=== PATIENT | female | born 1965 | race Caucasian/White ===

== ENCOUNTER 2021-05-06 12:33 | Emergency (ER) | payer MEDICAID, SELFPAY ==
[2021-05-06 12:33] VITALS: BP 69/48; PULSE 79; RESP 15; O2SAT 92; BMI 19.2
--- NOTE | 2021-05-06 12:55 | CT_ITS ---
WS: [id number] CT HEAD NONCONTRAST HISTORY: h/a, ams TECHNIQUE: Contiguous axial imaging performed through the brain in 2.5 mm imaging. Bone and soft tiss ue windows. Sagittal and coronal reformats reviewed. All CT scans at [facility] use at least one of these dose optimization techniques: automated exposure control; mA and/or kV adjustment per pa tient size (includes targeted exams where dose is matched to clinical indication); or iterative recon struction. DLP: 857.88 mGy.cm COMPARISON: 04/03/2015 No acute intracranial hemorrhage, midline shift or mass effect. No significant atrophy. Remote lacunar infarct in the RIGHT caudate head. No loss of clifton-white matte r differentiation. Ventricles: Normal size with no hydrocephalus. Paranasal sinuses: As visualized are clear. Mastoid air cells: Well pneumatized. Calvarium and scalp: Skull is intact with no soft tissue edema or swelling. CT/CT head wo con* [id number] IMPRESSION: 1. No acute intracranial hemorrhage or edema. 2. Remote RIGHT caudate head lacunar infarct.
--- NOTE | 2021-05-06 12:57 | ED_ITS ---
HPI - Headache General: Chief Complaint: Headache Stated Complaint: migraine Time Seen by Provider: 05/06/21 12:34 History of Present Illness: Patient presents via ambulance with complaint about headache x14 days. Did see her primary care provider and was given a Toradol shot and she said provider told her she should take a sip of alcohol so she did not go into DTs and do that on a daily basis. Patient is said she has relief from the Toradol but she feels like there is [id number] and pain going from back her head up into the top part. Said she is having problems finding words at times. He keeps repeating same statements over and over. Patient also says she has a history of migraines and alcoholism. Associated symptoms: Deny chest pain, fever(s), nausea, rash or vomiting Review of Systems Narrative: Is currently drinking alcohol Const: Denies: fever(s), chills or body aches Eyes: Denies: eye discomfort ENMT: Denies: throat pain Card: Denies: chest pain Resp: Denies: dyspnea GI: Denies: abdominal pain, nausea or vomiting Skin/Breast: Denies: rash Neuro: Reports: headache(s) and sensory changes Psych: Denies: depression or suicidal ideation Physical Exam Const: COMMON NORMALS: no acute distress, patient oriented x3 and alert HENMT: COMMON NORMALS: normocephalic and external ears normal HEAD & SCALP: normocephalic EXTERNAL EAR: Yes external ears normal Eye: COMMON NORMALS: EOMs intact bilaterally Neck/C-Spine: COMMON NORMALS: no JVD OTHER: Discomfort to the paracervical muscles. Resp: COMMON NORMALS: normal respiratory effort and No use of accessory muscles Cardio: COMMON NORMALS: no JVD GI: INSPECTION: Yes normal to inspection Extremity: COMMON NORMALS: normal to inspection and full ROM Neuro: COMMON NORMALS: patient oriented x3 SENSORIUM/ORIENTATION: Yes alert PUPIL EXAM: Normal pupillary reactivity/response: bilateral OTHER: Patient does appear slightly glassy eyed and possibly under the influence of alcohol. Is conversing normally. Psych: COMMON NORMALS: mental status grossly normal APPEARANCE: Yes grossly normal Skin: COMMON NORMALS: no rashes or lesions noted GENERAL SKIN EXAM: no rashes or lesions noted Course Vital Signs: Vital signs: Vital Signs Pulse Rate 73 05/06/21 13:44 Respiratory Rate 16 05/06/21 13:44 Blood Pressure 88/56 05/06/21 13:44 Pulse Oximetry 98 05/06/21 13:44 MDM - Headache Medical Decision Making Headache and EtOH intoxication. Patient is in no acute distress answers all questions appropriately. CT of the head just showed remote lunar infarct which is consistent with her past history. No signs of recent stroke or brain bleed. Headache is gone with medications gave her today. Labs are stable. Patient decreased alcohol intake follow-up with primary care provider and continue seek rehab. Lab Data : 05/06/21 13:15 05/06/21 13:[address] 05/06/21 12:55 IMPRESSION: 1. No acute intracranial hemorrhage or edema. 2. Remote RIGHT caudate head lacunar infarct. Laboratory Results WBC 7.1 10^3/uL (4.0-10.0) 05/06/21 13:15 RBC 4.58 10^6/uL (4.1-5.3) 05/06/21 13:15 Hgb 14.4 g/dL (11.5-15.3) 05/06/21 13:15 Hct 44.7 % (37.0-47.0) 05/06/21 13:15 MCV 97.6 fl (81-99) 05/06/21 13:15 MCH 31.4 pg (28.0-34.0) 05/06/21 13:15 MCHC 32.2 g/dL (30.0-36.0) 05/06/21 13:15 RDW 11.9 % (12.1-15.1) L 05/06/21 13:15 Plt Count 349 10^3/cmm (130-400) 05/06/21 13:15 MPV 9.6 fL (7.4-10.4) 05/06/21 13:15 Neut % (Auto) 53.8 % 05/06/21 13:15 Lymph % (Auto) 36.1 % 05/06/21 13:15 [place] % (Auto) 5.4 % 05/06/21 13:15 Eos % (Auto) 3.5 % 05/06/21 13:15 Baso % (Auto) 0.8 % 05/06/21 13:15 Neut # (Auto) 3.81 10^3/uL (1.8-7.7) 05/06/21 13:15 Lymph # (Auto) 2.6 10^3/uL (0.8-4.8) 05/06/21 13:15 [place] # (Auto) 0.4 10^3/uL (0.2-0.9) 05/06/21 13:15 Eos # (Auto) 0.3 10^3/uL (0.0-0.8) 05/06/21 13:15 Baso # (Auto) 0.1 10^3/uL (0.0-0.1) 05/06/21 13:15 Nucleated RBC % (auto) 0 % 05/06/21 13:15 Nucleated RBCs # 0.0 /100WBC 05/06/21 13:15 Sodium 142 mmol/L (136-145) 05/06/21 13:15 Potassium 4.4 mmol/L (3.5-5.1) 05/06/21 13:15 Chloride 103 mmol/L (98-107) 05/06/21 13:15 Carbon Dioxide 25 mmol/L (22-29) 05/06/21 13:15 Anion Gap 18.4 (5-19) 05/06/21 13:15 BUN 16 mg/dL (6-20) 05/06/21 13:15 Creatinine 1.1 mg/dL (0.5-0.9) H 05/06/21 13:15 GFR Calculation 51.8 mL/min (90-130) L 05/06/21 13:15 Glucose 92 mg/dL (65-115) 05/06/21 13:15 Calculated Osmolality 295 mOsm/kg (285-295) 05/06/21 13:15 Calcium 10.1 mg/dL (8.5-10.5) 05/06/21 13:15 C-Reactive Protein 3.0 mg/L (0.0-4.9) 05/06/21 13:15 Ethyl Alcohol 189 mg/dL (0-10) H 05/06/21 13:15 Discharge Plan Discharge Patient Disposition: Home Clinical Impression: Headache, Elevated ETOH level Condition: Stable Prescriptions: New Celebrex 100 mg capsule 100 mg PO BID Qty: 20 0RF Discharge Orders: Discharge ED (Routine); Ordered 05/06/21 Ordered By: Jaiden Sanchez Referrals: Rice,Mary, RO[employer]INEER [Primary Care Provider] - Discharge Diet: Usual diet Discharge Activity: Increase activity as tolerated Patient Instructions: Alcohol Intoxication (ED), Acute Headache (ED) Activity Restrictions/Additional Instructions: Follow-up with medical provider as directed. Take medications as prescribed. Return to the ER or your medical provider if condition worsens. Please read and understand discharge instructions. If any questions ask please. Decrease alcohol intake markedly. Coding Level of Care Code ED Non Destructive Testing Specialist for Anjum Fwd Exam Comprehensive
[2021-05-06 13:30] LABS: Basophils # 0.1 10^3/uL (0.0-0.1); Basophils % 0.8 %; Eosinophils # 0.3 10^3/uL (0.0-0.8); Eosinophils % 3.5 %; Hematocrit 44.7 % (37.0-47.0); Hemoglobin 14.4 g/dL (11.5-15.3); Lymphocytes # 2.6 10^3/uL (0.8-4.8); Lymphocytes % 36.1 %; Mean Corpuscular HGB Conc 32.2 g/dL (30.0-36.0); Mean Corpuscular Hemoglobin 31.4 pg (28.0-34.0); Mean Corpuscular Volume 97.6 fl (81-99); Mean Platelet Volume 9.6 fL (7.4-10.4); Monocytes # 0.4 10^3/uL (0.2-0.9); Monocytes % 5.4 %; Neutrophils # 3.81 10^3/uL (1.8-7.7); Neutrophils % 53.8 %; Nucleated Red Blood Cells % 0 %; Platelet Count 349 10^3/cmm (130-400); Red Blood Count 4.58 10^6/uL (4.1-5.3); Red Cell Distribution Width 11.9 % (12.1-15.1); White Blood Count 7.1 10^3/uL (4.0-10.0)
[2021-05-06 13:44] VITALS: BP 88/56; PULSE 73; RESP 16; O2SAT 98
[2021-05-06] MEDS: lactated ringers 1,000 ML 999 ML IV (13:49)
[2021-05-06] MEDS: ondansetron 2 mg/ML SDV 2 mL 4 MG IVP (13:50)
[2021-05-06] MEDS: ketorolac 30 mg/mL INJ IVP (13:50)
[2021-05-06] MEDS: magnesium sulfate premix 2 GM/50 ML PIGGYBACK IV (13:50)
[2021-05-06 13:55] LABS: Alcohol Level 189 mg/dL (0-10); Anion Gap 18.4 (5-19); Blood Urea Nitrogen 16 mg/dL (6-20); Calcium 10.1 mg/dL (8.5-10.5); Carbon Dioxide 25 mmol/L (22-29); Chloride 103 mmol/L (98-107); Glomerular Filtration Rate 51.8 mL/min (90-130); Glucose 92 mg/dL (65-115); Osmolality Calculated 295 mOsm/kg (285-295); Potassium 4.4 mmol/L (3.5-5.1); Sodium 142 mmol/L (136-145)
== END 2021-05-06 15:28 | disposition home or self-care (01) ==
PROVIDERS: Emergency Provider Nurse Practitioner Family; PCP Nurse Practitioner Family
DX: R51.9 Headache, unspecified (principal); F10.129 Alcohol abuse with intoxication, unspecified; Y90.6 Blood alcohol level of 120-199 mg/100 ml
CPT/HCPCS: 70450; 80048; 80307; 85025; 86140; 96365; 96375; 99284; J1885; J2405; J3475